=== PATIENT | male | born 1955 | race Two or more races ===

== ENCOUNTER 2023-01-14 09:41 | Emergency (ER) | payer OTHER ==
[~2023-01-14] VITALS: Ht 180.3 cm; Wt 99.8 kg
[~2023-01-14 09:41] MED LIST: HYZAAR 50/12.51 TAB; KETO10TA2 PO; MICARDIS80 MG; NORVASC5 MG PO; ORPH100T PO
[2023-01-14] MEDS ORDERED: AMLODIPINE BESY10 MG PO (09:59)
[2023-01-14] MEDS ORDERED: DICLOFENAC SODI75 MG PO (11:14)
== END 2023-01-14 11:45 | disposition home or self-care (01) ==
LOC: ER 09:41
DX: S40.012A Contusion of left shoulder, initial encounter (principal); W18.39XA Other fall on same level, initial encounter; Y93.89 Activity, other specified; Y92.018 Other place in single-family (private) house as the place of occurrence of the external cause; Y99.9 Unspecified external cause status

== ENCOUNTER 2025-02-02 19:58 | Emergency (ER) | payer OTHER ==
[~2025-02-02] VITALS: Ht 170.2 cm; Wt 77.1 kg
[~2025-02-02 19:58] MED LIST changes: +AMLODIPINE BESY10 MG PO; +DICLOFENAC SODI75 MG PO
[2025-02-02] MEDS ORDERED: METOPROLOL SUCC50 MG PO (20:47)
[2025-02-02] MEDS ORDERED: ROSUVASTATIN CA10 MG PO (20:47)
[2025-02-02] MEDS ORDERED: IPRATROPIUM BROMIDE 0.5 MG/2.5 ML AMPUL.NEB IH SCH (21:30)
[2025-02-02] MEDS ORDERED: GUAIFENESIN 200 MG/10 ML BLIST.PACK PO ONE (21:30)
[2025-02-02 21:38] LABS: BASO % 0.4 % (0.1-1.2); EOS # 0.21 (0.04-0.54); EOS % 2.8 % (0.7-7.0); HEMATOCRIT 39.9 % (40.1-51.0); HEMOGLOBIN 13.1 g/dL (13.7-17.5); LYMPH # 2.22 (1.18-3.74); LYMPH % 29.6 % (19.3-53.1); MEAN CORPUSCULAR HEMOGLOBIN 28.4 pg (25.6-32.2); MONO # 0.83 (0.24-0.82); MONO % 11.1 % (4.7-12.5); NEUT # 4.19 (1.56-6.13); PLATELET COUNT 263 K/uL (163-369); RED BLOOD COUNT 4.61 M/uL (4.63-6.08); RED CELL DISTRIBUTION WIDTH 12.7 % (11.6-14.4)
[2025-02-02 22:15] LABS: INFLUENZA A AG NEGATIVE (NEGATIVE)
[2025-02-02 22:16] LABS: COVID-19 AG NEGATIVE (NEGATIVE)
== END 2025-02-02 23:22 | disposition home or self-care (01) ==
LOC: ER 20:21
PROVIDERS: General Practice
DX: B34.9 Viral infection, unspecified (principal); R05.9 Cough, unspecified; Z20.822 Contact with and (suspected) exposure to COVID-19; I10 Essential (primary) hypertension

== ENCOUNTER 2025-02-06 14:40 | Outpatient (CLI) | payer OTHER ==
[~2025-02-06 14:40] MED LIST changes: +METOPROLOL SUCC50 MG PO; +ROSUVASTATIN CA10 MG PO
== END 2025-02-06 14:42 | disposition home or self-care (01) ==
LOC: SONOGRAMA 14:40
PROVIDERS: ATTEND Internal Medicine
DX: J18.9 Pneumonia, unspecified organism (principal)